=== PATIENT | male | born 1965 | race Caucasian/White ===

== ENCOUNTER 2022-06-14 11:57 | Emergency (ER) | payer OTHER ==
[~2022-06-14] VITALS: Ht 180.3 cm; Wt 79.4 kg
== END 2022-06-14 17:31 | disposition home or self-care (01) ==
LOC: ER 11:57
DX: N20.2 Calculus of kidney with calculus of ureter (principal); N20.9 Urinary calculus, unspecified; K57.30 Diverticulosis of large intestine without perforation or abscess without bleeding; K44.9 Diaphragmatic hernia without obstruction or gangrene